=== PATIENT | male | born 1990 | race Caucasian/White ===

== ENCOUNTER 2022-04-12 14:03 | Inpatient (IN) ==
[2022-04-12 14:45] LABS: Basophils % 0.3 %; Eosinophils # 0.1 K/mcL (0.0-0.6); Eosinophils % 0.8 %; Hematocrit 45.8 % (37.5-50.1); Hemoglobin 15.5 g/dL (12.9-16.9); Immature Granulocytes % 0.3 % (0-4); Lymphocytes # 1.6 K/mcL (0.6-4.6); Lymphocytes % 18.9 %; Mean Corpuscular HGB Conc 33.8 g/dL (31.6-35.5); Mean Corpuscular Hemoglobin 30.6 pg (28.0-33.3); Mean Corpuscular Volume 90.5 fL (83.0-100.0); Mean Platelet Volume 10.1 fL (9.4-12.4); Monocytes # 0.6 K/mcL (0.0-1.3); Monocytes % 6.8 %; Neutrophils # 6.3 K/mcL (1.6-8.9); Platelet Count 307 K/mcL (140-400); Red Blood Count 5.06 M/mcL (4.19-5.50); Red Cell Distribution Width 13.1 % (11.5-14.5); Segmented Neutrophils % 72.9 %; White Blood Count 8.6 K/mcL (4.3-11.1)
[2022-04-12 15:02] LABS: Acetaminophen < 10 mcg/mL (10-20); BUN/Creatinine Ratio 6 (6-26); Blood Urea Nitrogen 5 mg/dL (6-20); Calcium 9.7 mg/dL (8.6-10.3); Carbon Dioxide 26 mEq/L (23-29); Chloride 106 mEq/L (98-107); Ethanol < 10 mg/dL (Less than 10); Glucose 98 mg/dL (70-105); Osmolality,Calculated 283 (280-300); Potassium 3.9 mEq/L (3.5-5.1); Salicylate < 2.5 mg/dL (15.0-30.0); Sodium 138 mEq/L (136-145)
[2022-04-12 16:25] LABS: Bilirubin,Urine Negative (Negative); Blood,Urine Negative (Negative); Clarity,Urine Clear (Clear); Color,Urine Light-Yellow (Yellow); Glucose,Urine (UA) Normal (Normal); Ketones,Urine Negative (Negative); Leukocyte Esterase,Urine Negative (Negative); Nitrite,Urine Negative (Negative); PH,Urine 7.5 pH Units (5.0-8.0); Protein,Urine Negative (Neg-Trace); Specific Gravity,Urine 1.007 (1.010-1.025); Urobilinogen,Urine Normal (Normal)
[2022-04-12 17:00] LABS: Amphetamine Screen,Urine Negative ng/mL (Cutoff=1000); Barbiturate Screen,Urine Negative ng/mL (Cutoff=200); Benzodiazepines Screen,Urine Negative ng/mL (Cutoff=200); Cannabinoid Screen,Urine Negative ng/mL (Cutoff = 50); Cocaine Screen,Urine Negative ng/mL (Cutoff= 300); Opiate Screen,Urine Negative ng/mL (Cutoff=300); Phencyclidine Screen,Urine Negative ng/mL (Cutoff=25)
[2022-04-12 20:05] LABS: Influenza A PCR Negative (Negative); Influenza B PCR Negative (Negative); Resp. Syncytial Virus PCR Negative (Negative)
[2022-04-12 20:14] LABS: SARS-CoV-2 by PCR (In House) Negative (Negative)
[2022-04-12] MEDS ORDERED: Ziprasidone 20 MG, Closed System Device IM Kit 1 EACH in Water for inj. (sterile) 1 ML IM ONE (21:58)
[2022-04-12] MEDS ORDERED: Water for inj. (sterile) 10 ML ONE (22:01)
[2022-04-12] MEDS ORDERED: Ziprasidone 20 MG/VIAL VIAL IM ONE (22:09)
[2022-04-12] MEDS ORDERED: haloperidoL 5 MG TABLET PO PRN (23:15)
[2022-04-12] MEDS ORDERED: Acetaminophen 325 MG TABLET PO PRN (23:15)
[2022-04-12] MEDS ORDERED: Haloperidol Lactate 5 MG/ML VIAL IM PRN (23:15)
[2022-04-12] MEDS ORDERED: QUEtiapine Fumarate 25 MG TABLET PO PRN (23:15)
[2022-04-12] MEDS ORDERED: *HR* LORazepam 1 MG TABLET PO PRN (23:15)
[2022-04-12] MEDS ORDERED: *HR* LORazepam 2 MG/ML VIAL IM PRN (23:15)
[2022-04-12] MEDS ORDERED: hydrOXYzine pamoate 25 MG CAPSULE PO PRN (23:15)
[2022-04-13] MEDS ORDERED: MOM Conc 10 ML UD.LIQ PO PRN (08:04)
[2022-04-13] MEDS ORDERED: Mag Hydrox/Al Hydrox/Simeth 30 ML UDC PO PRN (08:04)
[2022-04-13] MEDS: Nicotine 21 MG PATCH.TD24 TD SCH (12:45)
[2022-04-13] MEDS ORDERED: Melatonin 3 MG TABLET PO PRN (21:47)
[2022-04-14 08:26] VITALS: BP 141/84; PULSE 71; TEMP 97.8; O2SAT 95
[2022-04-14] MEDS: Nicotine 21 MG PATCH.TD24 TD SCH (08:38)
== END 2022-04-14 11:28 | disposition home or self-care (01) | DRG 751 ==
LOC: EMEROOARM 14:03 → 1ANU 20:31
PROVIDERS: ADMIT Psychiatry & Neurology Psychiatry; ATTEND Psychiatry & Neurology Psychiatry